=== PATIENT | female | born 1990 | race Two or more races ===

== ENCOUNTER 2017-10-26 11:44 | Outpatient (CLI) | payer OTHER | END 2017-10-26 14:16 | disposition home or self-care (01) | LOC: NST 11:44 | DX: Z34.83 Encounter for supervision of other normal pregnancy, third trimester (principal) ==

== ENCOUNTER 2017-11-16 01:09 | Outpatient (CLI) | payer OTHER | END 2017-11-16 13:49 | disposition home or self-care (01) | LOC: OBS/DEL 01:09 | DX: O60.03 Preterm labor without delivery, third trimester (principal); Z34.03 Encounter for supervision of normal first pregnancy, third trimester ==

== ENCOUNTER 2017-12-22 09:30 | Inpatient (IN) | payer OTHER ==
[~2017-12-22] VITALS: Ht 157.5 cm; Wt 72.6 kg
[2018-01-17] MEDS ORDERED: PRENATAL FORMU1 EAC1 PO (10:10)
[2018-01-17] MEDS ORDERED: ATABEX DHA 200200 MG PO (10:10)
[2018-01-17] MEDS ORDERED: ATABEX OB PO (10:14)
== END 2018-01-19 12:05 | disposition home or self-care (01) | DRG 807 ==
LOC: OB/GYN 01-09 09:30 → LDR 01-17 06:59 → OB/GYN 01-17 21:43
PROC: 10E0XZZ Delivery of Products of Conception, External Approach (ICD-10-PCS; principal; 2018-01-17)
PROC: 0UQGXZZ Repair Vagina, External Approach (ICD-10-PCS; 2018-01-17)
PROC: 0W8NXZZ Division of Female Perineum, External Approach (ICD-10-PCS; 2018-01-17)
PROC: 3E033VJ Introduction of Other Hormone into Peripheral Vein, Percutaneous Approach (ICD-10-PCS; 2018-01-17)
PROC: 4A1HXCZ Monitoring of Products of Conception, Cardiac Rate, External Approach (ICD-10-PCS; 2018-01-17)
DX: O71.4 Obstetric high vaginal laceration alone (principal); Z37.0 Single live birth; Z3A.40 40 weeks gestation of pregnancy

== ENCOUNTER 2017-12-25 09:51 | Outpatient (CLI) | payer OTHER | END 2017-12-25 11:06 | disposition home or self-care (01) | LOC: NST 09:51 | DX: Z34.83 Encounter for supervision of other normal pregnancy, third trimester (principal) ==

== ENCOUNTER 2018-01-02 10:01 | Outpatient (CLI) | payer OTHER | END 2018-01-02 11:22 | disposition home or self-care (01) | LOC: NST 10:01 | DX: Z34.83 Encounter for supervision of other normal pregnancy, third trimester (principal) ==

== ENCOUNTER 2018-01-05 10:26 | Outpatient (CLI) | payer OTHER | END 2018-01-05 11:09 | disposition home or self-care (01) | LOC: NST 10:26 | DX: Z34.83 Encounter for supervision of other normal pregnancy, third trimester (principal) ==

== ENCOUNTER 2018-01-12 05:15 | Outpatient (CLI) | payer OTHER | END 2018-01-12 09:00 | disposition home or self-care (01) | LOC: OBS/DEL 05:15 | DX: O26.893 Other specified pregnancy related conditions, third trimester (principal); O47.1 False labor at or after 37 completed weeks of gestation; Z34.03 Encounter for supervision of normal first pregnancy, third trimester ==

== ENCOUNTER 2021-07-06 11:56 | Inpatient (IN) | payer OTHER ==
[~2021-07-06] VITALS: Ht 157.5 cm; Wt 70.8 kg
[~2021-07-06 11:56] MED LIST: ATABEX DHA 200200 MG PO; ATABEX OB PO; PRENATAL FORMU1 EAC1 PO
== END 2021-07-23 12:23 | disposition home or self-care (01) | DRG 807 ==
LOC: LDR 07-21 08:35 → OB/GYN 07-21 16:13 → LDR 07-28 13:15
PROVIDERS: ADMIT Obstetrics & Gynecology; ATTEND Obstetrics & Gynecology
PROC: 10E0XZZ Delivery of Products of Conception, External Approach (ICD-10-PCS; principal; 2021-07-21)
PROC: 0HQ9XZZ Repair Perineum Skin, External Approach (ICD-10-PCS; 2021-07-21)
PROC: 4A1HXCZ Monitoring of Products of Conception, Cardiac Rate, External Approach (ICD-10-PCS; 2021-07-21)
DX: O70.1 Second degree perineal laceration during delivery (principal); Z37.0 Single live birth; Z3A.39 39 weeks gestation of pregnancy; Z20.822 Contact with and (suspected) exposure to COVID-19